=== PATIENT | male | born 1960 | race Caucasian/White ===

== ENCOUNTER 2017-03-18 00:59 | Emergency (ER) | payer OTHER ==
[2017-03-18 01:06] VITALS: RESP 18; TEMP 98.2; O2SAT 100
[2017-03-18] MEDS ORDERED: APAP/OXYCODONE 325/5 TAB PO ONE (01:12)
[2017-03-18 01:14] LABS: APPEARANCE,URINE Clear; BILIRUBIN,URINE NEGATIVE (NEGATIVE); COLOR,URINE Yellow; GLUCOSE, URINE (UA) NEGATIVE (NEGATIVE); KETONES,URINE NEGATIVE (NEGATIVE); LEUKOCYTE ESTERASE ,URINE NEGATIVE (NEGATIVE); NITRATE,URINE NEGATIVE (NEGATIVE); OCCULT BLOOD,URINE TRACE INTACT (NEG-TRACE); UROBILINOGEN,URINE 0.2 (0.2-1.0 EU)
[2017-03-18] MEDS ORDERED: APAP/OXYCODONE 325/5 TAB ONE (01:21)
[2017-03-18 01:23] LABS: RBC,URINE 0-4 (0-3AV/HPF); WBC,URINE 0-2 (0-5AV/HPF)
[2017-03-18 01:29] VITALS: BP 123/79; PULSE 53
== END 2017-03-18 01:24 | disposition home or self-care (01) | DRG 392 ==
LOC: ED 00:59
DX: R10.9 Unspecified abdominal pain (principal); E27.8 Other specified disorders of adrenal gland
CPT/HCPCS: 74176; 81001; 99283

== ENCOUNTER 2017-11-30 09:53 | Day surgery (SDC) | payer OTHER ==
[~2017-11-30 09:53] MED LIST: LIDOCAINE HCL 1% MPF 30 SOL ONE; PROPOFOL 500 MG/50 ML EMU IV ONE
[2017-11-30 11:57] VITALS: BP 124/81; PULSE 52; RESP 20; TEMP 97.3; O2SAT 97
== END 2017-11-30 12:10 | disposition home or self-care (01) | DRG 951 ==
LOC: SURG 09:53
PROVIDERS: ATTEND Surgery
DX: Z12.11 Encounter for screening for malignant neoplasm of colon (principal); D12.2 Benign neoplasm of ascending colon; Z80.0 Family history of malignant neoplasm of digestive organs; D12.3 Benign neoplasm of transverse colon
CPT/HCPCS: 99001; J2001; J2704